=== PATIENT | female | born 1990 | race Caucasian/White ===

== ENCOUNTER 2021-04-19 20:28 | Emergency (ER) | payer OTHER, MEDICARE ==
[2021-04-19 22:11] LABS: HEMOGLOBIN 12.3 gm/dl (12.3-15.3); RED BLOOD COUNT 4.74 M/UL (4.00-5.10); WHITE BLOOD COUNT 13.9 K/UL (4.5-11.0)
[2021-04-19 22:37] LABS: BUN/CREATININE RATIO 11 (0-10)
[2021-04-20] MEDS ORDERED: CEPHALEXIN500 M1 PO (01:06)
== END 2021-04-20 02:00 | disposition home or self-care (01) ==
LOC: ER1 20:28
PROVIDERS: Physician Assistant; Student in an Organized Health Care Education/Training Program
DX: N39.0 Urinary tract infection, site not specified (principal); R07.9 Chest pain, unspecified; Z90.49 Acquired absence of other specified parts of digestive tract; Z20.822 Contact with and (suspected) exposure to COVID-19
CPT/HCPCS: 0240U; 51701; 71045; 80053; 80307; 81001; 82550; 82553; 83874; 83880; 84484; 84703; 85025; 85379; 87077; 87086; 87186; 93005; 99285